=== PATIENT | male | born 1960 | race Caucasian/White ===

== ENCOUNTER 2021-11-06 04:16 | Outpatient (CLI) | payer BC, SELFPAY ==
[2021-11-06 12:55] LABS: Source Nasal/Nares
[2021-11-06 17:46] LABS: COVID-19 PCR Negative (Negative)
== END 2021-11-06 04:17 | disposition home or self-care (01) ==
LOC: LBO 04:16
PROVIDERS: PCP Neuromusculoskeletal Medicine & OMM; Visit Provider Surgery
DX: Z20.822 Contact with and (suspected) exposure to COVID-19 (principal)
CPT/HCPCS: 87635

== ENCOUNTER 2021-11-09 09:31 | Day surgery (SDC) | payer BC, SELFPAY ==
--- NOTE | 2021-11-09 06:14 | W.ANESPRE ---
General Info Date of Service Date Performed: 11/09/21 Height: 5 ft 9 in Weight: 111 kg Body Mass Index (BMI): 36.1 Surgical Procedure: Operation Date: 11/09/21 14:05 Proposed Procedures Side Surgeon p Colonoscopy Clarice Singh MD Meds Allergies and Home Medications Allergies Allergy/AdvReac Type Severity Reaction Status Date / Time No Known Allergies Allergy Verified 11/09/21 09:49 Home Medication Medication Instructions Recorded albuterol sulfate 90 mcg/actuation 2 puff INHALATION Q6H PRN 11/03/21 aerosol inhaler omeprazole 20 mg capsule,delayed 20 mg PO DAILY 11/03/21 release sildenafil 100 mg tablet 50 mg PO DAILY PRN tab 11/03/21 bisacodyl 5 mg tablet,delayed 5 mg PO ONCE #4 tab 11/05/21 release polyethylene glycol 3350 17 17 g PO ONCE #238 g 11/05/21 gram/dose oral powder Current Visit Medications: Current Medications Generic Name Dose Route Start Last Admin Trade Name Freq PRN Reason Stop Dose Admin Ringer's Solution 1,000 mls @ 80 mls/hr 11/09/21 06:00 IV 12/06/21 23:59 INFUSION JACQUELINE IV Miscellaneous Supplies 1 each 11/09/21 06:00 Iv Access IV 12/06/21 23:59 DIRECTED JACQUELINE Sodium Chloride 0 ml 11/09/21 06:00 Normal Saline Flush 10 Ml Syr IV 12/06/21 23:59 PRN PRN Sodium Chloride 0 ml 11/09/21 06:00 Normal Saline 10 Ml Vial IJ 12/06/21 23:59 DIRECTED PRN Sterile Water 0 ml 11/09/21 06:00 Water,Injection,Sterile 10 Ml Vial IJ 12/06/21 23:59 DIRECTED PRN PFSH Active Problems Active Problems: Problem Status Onset Code Abdominal pain R10.9 GERD (gastroesophageal reflux disease) K21.9 Obesity E66.9 Hematochezia K92.1 Medical History Medical History BPH (benign prostatic hyperplasia) COVID-19 January of 2021 Hyperlipidemia Impotence Varicose veins of both lower extremities Surgical History Surgical History History of varicose vein stripping Tobacco Smoking/Tobacco Use Status: Former Tobacco Use Alcohol Alcohol Intake: never Substance Use Substance use type: does not use Vital Signs and Lab Results Vital Signs Most Recent Vital Signs in EMR: Temp Pulse Resp BP Pulse Ox 36.2 C L 79 16 138/92 H 98 11/09/21 09:52 11/09/21 09:52 11/09/21 09:52 11/09/21 09:52 11/09/21 09:52 Lab Results Blood Type / Crossmatch: No Data to Display Complete Blood Count: No Data to Display Complete Metabolic Panel: No Data to Display Liver Function Panel: No Data to Display Coagulation Panel: No Data to Display Cardiac Panel: No Data to Display Arterial Blood Gas: No Data to Display Venous Blood Gas: No Data to Display Pancreas Panel: No Data to Display Thyroid Panel: No Data to Display Infectious Disease: Coronavirus (COVID-19)(PCR) Negative (Negative) 11/06/21 09:53 11/06/21 Coronavirus 2019 Source Nasal/Nares 11/06/21 09:53 11/06/21 Blood Cultures: No Data to Display Toxicology Panel: No Data to Display Anesthesia Assessment and Plan Anesthesia History Personal History: No History of Anesthesia Complications Family History: No Family History of Anesthesia Complications Exercise Tolerance Exercise Tolerance: Metabolic Equivalents<4 Cardiac & Pulmonary Exam Cardiac Exam: Normal S1/S2 Heart Sounds Pulmonary Exam: Clear Bilateral Breath Sounds Implantable Cardiac Device Does patient have a Pacemaker or an ICD?: No Airway Exam Known Difficult Airway: No Mallampati Class: 2 Mouth Opening: Normal (> 3cm) Thyromental Distance: Greater than 3 cm Neck Range of Motion: Full ROM Neck Circumference: Normal Teeth Condition: Normal Dentition ASA Classification ASA Score: ASA 2 Emergency Case?: No NPO Status NPO Status: NPO Clears >2 hours, Solids >8 hours Anesthesia Plan Resuscitation Status: Full Code Anesthesia Technique: General Anesthesia Airway Planned: Natural Airway Monitors Used: Standard Monitors Preoperative Comments:: 61 yo male with abdominal pain for colonoscopy. Sig PMHx: GERD (omeprozole).
--- NOTE | 2021-11-09 06:59 | W.COLOREPORT ---
Colonoscopy Report Date of procedure: 11/09/21 Pre-op diagnosis general: Hematochezia, abdominal pain Post-op diagnosis procedure note: other (chronic inflammation) Procedure: Colonoscopy with biopsies Surgeon: Clarice Singh Anesthesia Type: General:No Airway Estimated blood loss (mL): 5 Pathology: other (Bx of descending, sigmoid and rectum) Complications: None Disposition: same day Indications: 61 y/o male with history of GERD presents for colonoscopy screening pre-op. His last screening was at [facility] in 2014 and was unremarkable. He has a family history of ulcerative colitis in his mother and a family history of colon cancer in his paternal grandmother and aunt. Patient reports having lower cramping abdominal pain, loose stools and bright red blood in the toilet following BMs since 2020. He has been seen by his PCP. Stool studies were unremarkable. Patient reports that he received a rectal exam by his PCP, however this information was not provided in the referral. Patient has followed a bland diet, with minimal if any improvement in his symptoms. He denies constitutional symptoms. Denies use of marijuana or any other recreational or illegal drugs. He denies chest pain, palpitations, dyspnea or dyspnea with exertion. He denies prior history or family history of adverse reactions or complications with anesthesia. The patient denies any history of stroke, MS, seizures, bleeding or clotting disorders. He denies having any implanted metal in his body. Prep: Miralax/Dulcolax Procedure Start Time: 11:35 Procedure End Time: 11:58 Retraction Time: 10 minutes Findings: Patchy chronic inflammation of rectum, sigmoid and descending colon Normal terminal ileum Delcid-diverticulosis Procedure Description: After informed consent was obtained the patient was taken to the procedure room and placed in a left decubitous position. Monitors were applied and a time out was done. The patients name, date of , procedure, allergies to medications and metal in their body was reviewed. The patient was then sedated. Once sedated and comfortable a rectal exam was done. External exam was normal. Internal exam revealed a normal sphincter tone and no palpable masses. The prostate felt smooth. The scope was then introduced and retro-flexed. No internal hemorrhoids, polyps or masses were identified on retro-flexion. The scope was then advanced to the cecum without difficulty. The ileocecal vlave and appendiceal orifice were identified. The prep was good. The scope was then slowly retracted over 10 minutes back into the rectum. There were no polyps. There were patchy areas of chronic inflammation with bleeding from the descending colon to the rectum. Randome biopsies were done of the inflammed tissue. There was no diverticulosis noted. The scope was removed and the patient was woken up and taken back to Same day surgery in stable condition. The patient tolerated the procedure well and there were no immediate complications. Follow up: I will call with results and discuss next steps. I will get some labs drawn today.
--- NOTE | 2021-11-09 07:00 | W.PM.DSUDISC ---
Discharge Plan Disposition Patient Disposition: HOME Condition: Good Discharge Details Reason For Visit: Colonoscopy Attending Provider: Clarice Singh Primary Care Provider: Raul Vick Home Meds and New Rx's Prescriptions: Continued albuterol sulfate 90 mcg/actuation HFA aerosol inhaler 2 puff inhalation Q6H PRNRF: 0 omeprazole 20 mg capsule,delayed release(DR/EC) 20 mg PO DAILY RF: 0 sildenafil 100 mg tablet 50 mg PO DAILY PRNRF: 0 Discontinued bisacodyl [Dulcolax (bisacodyl)] 5 mg tablet,delayed release (DR/EC) 5 mg PO ONCE Qty: 4 RF: 0 polyethylene glycol 3350 17 gram/dose powder 17 g PO ONCE Qty: 238 RF: 0 Discharge Instructions Instructions: Low Fiber Diet (DC) Additional Instructions: Findings: chronic inflammation of the bowel with bleeding Follow up: I will call you with results Please call if you develop: fevers >101.5 Nausea or Vomiting Abdominal pain that is not transient Rectal bleeding that is more then a tbsp A hard abdomen and inability to pass gas DAY SURGERY UNIT POST ENDOSCOPY INSTRUCTIONS Instructions for everyone who is given Anesthesia: For your safety, please do the following for the next 24 Hours: a. Do not drive or operate dangerous equipment b. Do not drink alcohol beverages or use any recreational drugs for the first 24 hours or while taking pain medications. The medications in your body may have a reaction that can be dangerous. c. Do not make any important decisions or sign any important papers 1. Generally there are no restrictions on your activity after a day or so has gone by, but you may feel a bit fatigued for a few days. 2. After you arrive home you may have a light meal and return to a normal diet as you can tolerate it without feeling sick to your stomach. 3. After surgery, you may feel pain or discomfort. This should be only transient, but if it persists please contact your doctor. 4. If there are any questions regarding the findings of your procedure, please feel free to contact your doctor. 6. If you are unable to contact your doctor with a problem, contact the hospital at [phone]. 7. Continue all your regular medications unless directed otherwise. I understand the above instructions and have no questions. Signature of Patient or Responsible Adult Escort Date/Time Name of Responsible Adult Escort Signature of Nurse Date/Time Activity:: Activity as Tolerated Diet:: low fiber Discharge Orders Discharge Orders: Discharge Order (Routine); Ordered 11/09/21 Ordered By: Clarice Singh
[2021-11-09 09:52] VITALS: BP 138/92; PULSE 79; RESP 16; TEMP 36.2; O2SAT 98
[2021-11-09] MEDS: Lactated Ringers 1,000 ML 80 ML IV (10:07)
[2021-11-09 10:49] VITALS: BMI 36.1
--- NOTE | 2021-11-09 11:44 | BOWEL_PTH ---
PATIENT: Bhavin Sawyer LOC: [facility] U#:[id number] AGE/SX: 61/M ROOM: RE11/09/[address]: Clarice Singh MD : 1960 BED: DIS: 11/09/2021 SPEC #: [id number] RECD: 11/09/21 13:52 STATUS: PABLO RECamren #: [id number] BRII: 11/09/21 11:[address]: Clarice Singh DEPT: Surgical Specimen RECD BY: Jessica Ly ENTERED: 11/09/21 13:54 SP TYPE: Bowel OTHR DR: Raul Vick Tissues: 1 - BIOPSY BOWEL 2 - BIOPSY BOWEL 3 - BIOPSY BOWEL 4 - BIOPSY BOWEL Procedures: GROSS AND MICRO LEVEL 4 Comments: [id number]
[2021-11-09 12:05] VITALS: BP 104/46; PULSE 59; RESP 14; TEMP 36; O2SAT 98
[2021-11-09 12:35] VITALS: BP 131/90; PULSE 66; RESP 16; TEMP 35.8; O2SAT 99
--- NOTE | 2021-11-09 12:38 | W.ANESPOSTOP ---
Postoperative Evaluation Date, Time and Location Date Performed: 11/09/21 Time Performed: 12:10 Patient Location: Day Surgery Unit Vital Signs Most Recent Imported Vital Signs: Most Recent Vital Signs Temp Pulse Resp BP Pulse Ox 35.8 C L 66 16 131/90 99 11/09/21 12:35 11/09/21 12:35 11/09/21 12:35 11/09/21 12:35 11/09/21 12:35 Pain Score Most Recent Pain Score: Most Recent Pain Score Pain Level 0 11/09/21 12:35 Assessment Mental Status: Awake (Alert & Oriented to Patient Baseline) Airway and Respiratory Function: Patent airway with normal (patient baseline) respiratory exam Cardiovascular Function: Hemodynamically Stable Hydration Status: Adequately Hydrated Nausea & Vomiting: No Nausea or Vomiting Pain: Pt. Denies Any Pain Peripheral Nerve Block: Patient did not receive a nerve block
[2021-11-09 12:43] LABS: Abs Immature Grans 0.02 10^3/uL (0.0-0.06); Absolute Basophil Count 0.08 10^3/uL (0.0-0.2); Absolute Lymphocyte Count 1.45 10^3/uL (1.2-3.4); Absolute Monocyte Count 0.57 10^3/uL (0.1-0.8); Absolute Neutrophil Count 4.36 10^3/uL (1.2-6.7); Basophils % 1.2; HCT 47.7 % (40.0-50.0); HGB 15.2 g/dL (13.5-17.5); Immature Grans % 0.3; Lymphocytes % 22.4; MCH 29.1 pg (27.0-33.0); MCHC 31.9 % (32.0-36.0); MCV 91.4 fL (80-95); MPV 9.6 fL (8.0-11.0); Monocytes % 8.8; Neutrophils % 67.3; Nucleated RBC 0 %; Platelet Count 322 10^3/uL (130-400); RBC 5.22 10^6/uL (4.36-5.78); RDW 12.1 % (11.8-14.1); RDW-SD 40.7 fL; WBC 6.48 10^3/uL (4.4-10.8)
[2021-11-09 12:52] LABS: ALT 19 U/L (16-63); AST 15 U/L (15-37); Albumin 3.7 g/dL (3.4-5.0); Alkaline Phosphatase 99 U/L (46-116); Anion Gap 8.7 mmol/L (3-11); BUN 10 mg/dL (7-18); Bilirubin, Total 0.6 mg/dL (0.2-1.0); C-Reactive Protein 0.25 mg/dL (0.0-0.3); CO2 27.3 mmol/L (21.0-32.0); CREATININE 1.4 mg/dL (0.70-1.30); Calcium 9.3 mg/dL (8.5-10.1); Chloride 103 mmol/L (98-107); Estimated GFR 51.18 (mL/min/1.73m2); Glucose 85 mg/dL (74-106); Magnesium 2.1 mg/dL (1.8-2.4); Potassium 3.9 mmol/L (3.5-5.1); Sodium 139 mmol/L (136-145)
[2021-11-09 13:09] LABS: Procalcitonin < 0.1 ng/mL
== END 2021-11-09 13:30 | disposition home or self-care (01) ==
PROVIDERS: PCP Neuromusculoskeletal Medicine & OMM; Visit Provider Surgery
PROC: 0DJD8ZZ Inspection of Lower Intestinal Tract, Via Natural or Artificial Opening Endoscopic (ICD-10-PCS; CPT 45378; principal; 2021-11-09 11:00)
DX: K92.1 Melena (principal); K52.9 Noninfective gastroenteritis and colitis, unspecified; K62.89 Other specified diseases of anus and rectum; Z80.0 Family history of malignant neoplasm of digestive organs; K21.9 Gastro-esophageal reflux disease without esophagitis
CPT/HCPCS: 45380; 36415; 80053; 84145; 88305; 83735; 85025; 86140; J2001